=== PATIENT | female | born 1980 | race Caucasian/White ===

== ENCOUNTER 2021-04-08 07:19 | Day surgery (SDC) | payer BC ==
[2021-04-05 10:49] LABS: Urine Appearance CLEAR (Clear); Urine Bilirubin NEGATIVE (Negative); Urine Blood 2+ (Negative); Urine Color YELLOW (Yellow); Urine Glucose NEGATIVE (Negative); Urine Protein NEGATIVE (Negative); Urine Urobilinogen 0.2 mg/dL (0.2-1.0)
[2021-04-05 10:53] LABS: Urine Microscopic Reflex ORDER UMIC
[2021-04-05 11:20] LABS: Absolute Lymphocytes (CBC) 2.3 K/uL (0.7-4.9); Basophils % 0.8 % (0-1.3); Hematocrit 31.1 % (36.0-45.0); Lymphocytes % 43.1 % (15.3-44.8); MPV 8.9 fL (7.6-11.3); RBC Red Blood Cell Count 3.53 M/uL (3.86-4.86)
[2021-04-05 12:14] LABS: Urine Bacteria NONE SEEN /HPF (<20); Urine RBC <5 /HPF (NONE SEEN)
[2021-04-08] MEDS ORDERED: Ringers Lactate 1,000 ML IV ONE (08:23)
[2021-04-08] MEDS ORDERED: SCOPOLAMINE HYDROBROMIDE PATCH TD ONE (08:23)
[2021-04-08] MEDS ORDERED: CEFAZOLIN 2 GM IN 0.9% NACL 2 GM/100 ML BAG ONE (08:24)
[2021-04-08] MEDS ORDERED: propofoL 200 MG/20 ML VIAL IV ONE (08:50)
[2021-04-08] MEDS ORDERED: LIDOCAINE 1% MPF 5 ML VIAL ONE (08:51)
[2021-04-08] MEDS ORDERED: FENTANYL CITR 250 MCG/5 ML ONE (08:51)
[2021-04-08] MEDS ORDERED: ROCURONIUM 50 MG/5 ML VIAL IV ONE (08:51)
[2021-04-08] MEDS ORDERED: ONDANSETRON 4 MG/2 ML VIAL ONE (08:51)
[2021-04-08] MEDS ORDERED: dexAMETHasone 10 MG/ML VIAL ONE (08:51)
[2021-04-08] MEDS ORDERED: MIDAZOLAM HCL 2 MG/2 ML INJ ONE (08:51)
[2021-04-08] MEDS ORDERED: CELECOXIB 100 MG CAPSULE ONE (08:52)
[2021-04-08] MEDS ORDERED: ACETAMINOPHEN 500 MG TAB ONE (08:52)
[2021-04-08] MEDS ORDERED: KETOROLAC 30 MG/ML INJ ONE ×2 (09:20→10:59)
[2021-04-08 09:32] VITALS: O2SAT 100
[2021-04-08] MEDS ORDERED: GLYCOPYRROLATE 0.2 MG/ML SYR ONE ×2 (11:12→11:32)
[2021-04-08] MEDS ORDERED: PROMETHAZINE INJ 25 MG/ML AMP IV PRN (11:24)
[2021-04-08] MEDS ORDERED: HYDROCODONE/APAP 5/325 MG TAB PO PRN (11:24)
[2021-04-08] MEDS ORDERED: IBUPROFEN 200 MG TAB PO PRN (11:24)
[2021-04-08] MEDS ORDERED: MEPERIDINE HCL 25 MG/ML SYR IM PRN (11:24)
[2021-04-08] MEDS ORDERED: NEOSTIGMINE 1 MG/ML -5 ML ONE (11:32)
--- NOTE | 2021-04-08 11:33 | P.BOP ---
Preoperative diagnosis: Menorrhagia, Dysmenorrhea Postoperative diagnosis: same, adhesions sigmoid to the left tube Primary procedure: hysteroscopy ablation, laparoscopy, bilateral salpingectomy Secondary procedure: lysis of adhesions, peritoneal biopsy ? endo Welt Rander: Eloise Dunlap Estimated blood loss: min Specimen: left lat wall?endo, both tubes Findings: left tubal adhesions to sigmoid/peritoneal periureteric implant ?endo Anesthesia: General Complications: None Transferred to: Recovery Room Condition: Good
[2021-04-08 12:24] VITALS: BP 105/57; TEMP 96.8
[2021-04-08] MEDS ORDERED: HYDROCODONE/APAP 5/325 MG TAB ONE (13:35)
--- NOTE | 2021-04-08 14:26 | OP ---
Date of Procedure: 04/08/2021 Surgeon: Sonia Nova MD Insurance Claims Specialist: Eloise Forbes. Preoperative Diagnosis: Menorrhagia, dysmenorrhea. Postoperative Diagnoses: Menorrhagia, dysmenorrhea, adhesions of the sigmoid to the left tube. Procedures Performed: Hysteroscopy, endometrial ablation, laparoscopy, bilateral salpingectomy, lysi s of adhesions of the sigmoid to the left tube into the lateral wall, peritoneal biopsy of the possib le endometriosis, left periureteric on the lateral wall. Estimated Blood Loss: Minimal. Specimens: Left lateral wall questionable and she has the peritoneal implant, then both tubes. Complications: No complications. Drains: No drains. Condition: Stable. Findings: Left tubal adhesions of the sigmoid and to the left lateral wall, peritoneal periureteric implant, question. Endometrial ablation was performed with power setting at 112 velazquez. Cavity lengt h of 6 cm, cavity width of 3.4 cm for 48 seconds. Excellent ablation effect in the entire endometria l cavity as visualized by the hysteroscopy postablation. Indications: The patient is a 41-year-old female with heavy menstrual periods, evaluated with endome trial sampling, negative for any atypia or malignancy. She has history of dysmenorrhea, bleeding wit h severe cramps as well. She has been counseled about all her options including depot medroxyprogest erone. IUD may not be optimal given the adhesions seen during the diagnostic hysteroscopy in the off ice. She was placed on Megace twice a day for 4 days and then daily until the ablation. She has iro n deficiency anemia with hemoglobin of 11 g, just by taking the regular daily iron. So, plan is to p erform hysteroscopy, endometrial ablation for treatment of her bleeding and iron deficiency anemia. Then due to her history of intrauterine adhesions, there was also a possibility that there would be t ubal adhesions and removal of the tubes would protect her from having postablation tubal ligation syn drome and pelvic pain. So, the patient does not have any sterilization in place either and for ovari an cancer protection, bilateral salpingectomy was recommended. So, she was consented for all these r espective procedures and brought to the office. Procedure In Detail: After informed consent was verified, 2 g of Ancef were given. The patient was taken back to OR, placed in supine fashion on the operating table. General anesthesia was given. Jason e was placed in a dorsal lithotomy position. Pelvic exam was performed. Abdomen, vulva, vagina, and perineum were prepped and draped in a sterile fashion. Lozano was placed to drain the bladder and sp eculum was placed to expose the cervix. Anterior lip grasped with 2 Allis clamps. Diagnostic SlimLi ne hysteroscope was used to traverse the cervical canal into the uterine cavity under direct vision. The fundal height was 10 cm as found with the scope and 4 cm cervical length. So, the calculated ca vity length of 6 cm was entered into the generator of the NovaSure device. The device was opened, pr imed, and inserted through the cervical canal without any dilation. Fan was deployed and the width w as assessed at 3.4 cm, which was entered into the generator. Then, cavity integrity test was done wi th the cap occluding the external cervical os. After passing the integrity test, then ablation cycle was started for 48 seconds uninterrupted. Then, the device was undeployed in the usual fashion. Sl imLine hysteroscope reintroduced. Excellent ablation effect of all the fundal lateral wall, endometr ium all the way to the cornual end as well as to the internal os was all well cauterized and thin vargas ing was noted. The cavity was irrigated out and then scope removed. Diagnostic uterine manipulator introduced into the uterus and fixed in place. This area was draped. A 1 cm infraumbilical incision made with scalpel using the open laparoscopy technique. Fascia was in cised, tagged with 0 Vicryl sutures. Peritoneum entered bluntly. S-retractors were placed. Clover introduced and the patient was insufflated appropriately. She was bradycardic after adequate insuffl ation, so she was desufflated and once the heart rate was recovered in the 50 from the lowest of 35, she was brought back and then insufflation was done slowly without any problems. Tolerated the proce dure well. Then, suprapubic 5 and left lower quadrant 5 ports were placed under direct vision. Fasc ia was injected with 0.25% Marcaine at the skin as well besides the fascia. Then, thorough evaluatio n of the peritoneal cavity was done. Upper abdominal surface was completely unremarkable. Omentum u nremarkable. Left periureteric implant was seen, possibly endometriosis, but no other implants were seen in any other places. A tiny blood clot on the right ovary on its surface, did not appear to be endometriosis implant. The tube on the right side completely without adhesions; however, slight dila tation at the distal tip. On the left side, there were adhesions of the distal tip to the sigmoid co holden and sigmoid colon to the left lateral wall besides its natural attachment. So, all these adhesio ns were taken down with the help of sharp dissection as well with LigaSure. After the sigmoid was ta owen down, the tube was well visualized. Then, tubal adhesions were taken down. Once this was freed up, the tube was then taken down through the mesosalpinx, detached, pulled out and handed out. Simil rei, right tube was dissected and removed, and the peritoneum implant was excised by opening up the peritoneum, dissecting the ureter medially and excising this implant, handed out for permanent pathol ogy. All the areas were thoroughly irrigated and suctioned and hemostasis was secured and it was exc ellent. Gas was desufflated. Trocars were removed under direct vision and injected again with 0.25% Marcaine at the skin fascia. The fascia at the umbilicus was closed with 0 Vicryl sutures, tagged, tied to each other, and simple 0 Vicryl stitch to the subcutaneous area. Then, all subcuticular sutu res with 4-0 chromic and skin tapes were placed. Lozano and the manipulator were removed. Instrument , needle, and sponge counts were correct at the end of the case. The patient tolerated the procedure well. She got 30 mg of Toradol during the case. NIRALI/ROSALIA Voice ID: [id number] Report ID: [id number]
== END 2021-04-08 13:45 | disposition home or self-care (01) ==
LOC: OR 07:19
PROVIDERS: ATTEND Obstetrics & Gynecology
PROC: 0UT74ZZ Resection of Bilateral Fallopian Tubes, Percutaneous Endoscopic Approach (ICD-10-PCS; 2021-04-08)
PROC: 0WBF4ZX Excision of Abdominal Wall, Percutaneous Endoscopic Approach, Diagnostic (ICD-10-PCS; 2021-04-08)
PROC: 0U5B8ZZ Destruction of Endometrium, Via Natural or Artificial Opening Endoscopic (ICD-10-PCS; principal; 2021-04-08 09:15)
DX: N92.1 Excessive and frequent menstruation with irregular cycle (principal); N94.6 Dysmenorrhea, unspecified; D50.0 Iron deficiency anemia secondary to blood loss (chronic); Z20.822 Contact with and (suspected) exposure to COVID-19
CPT/HCPCS: 85025; 36415; 86900 ×2; 86850 ×2; 81025; 86901 ×2; 88305; 58563; 58661; 49321; U0002; J2704; J2250; J3010; J1100; J2710; J0690; J7120; J2405; 81003; 81015